=== PATIENT | male | born 1960 | race African-American/Black ===

== ENCOUNTER → 2017-07-07 | Day surgery (SDC) | payer SELFPAY ==
[~2017-07-07] MED LIST: Bupivacaine PF 0.5% 30 ML VIAL ONE; Bupivacaine/Epinephrine 0.25% 30 ML VIAL ONE; Dexamethasone 20 MG/5 ML VIAL ONE; Fentanyl 100 MCG/2 ML VIAL ONE; ISOVUE-370 76%-LOCM 1 ML ONE; Labetalol HCl 100 MG/20 ML VIAL ONE; Lidocaine 1% PF 5 ML VIAL ONE; Midazolam HCl 2 mg/2 ml Vial ONE; Ondansetron HCl/PF 4 MG/2 ML Vial ONE; PHENYLEPHRINE-NS 100 MCG/ML 10 ML SYRINGE ONE; Piperacillin/Tazobactam 4.5 GM in Sodium Chloride 0.9% 100 ML IVPB SCH; Propofol 200 MG/20 ML VIAL ONE
[2017-07-07 15:02] LABS: Hemoglobin 16.4 g/dL (14.0-18.0); Mean Corpuscular HGB CONC 31.7 g/dL (32.0-36.0); Mean Corpuscular Hemoglobin 31.6 pg (27.0-31.0); Mean Corpuscular Volume 99.8 fl (80.0-94.0); Platelet Count 214 thou/uL (130-400); RBC Distribution Width 12.2 % (11.5-14.5)
[2017-07-07 15:05] LABS: ALT (SGPT) 22 U/L (8-55); AST (SGOT) 25 U/L (5-34); Albumin 3.9 g/dL (3.5-5.0); Alkaline Phosphatase 106 U/L (40-150); Anion Gap 11 mmol/L (10-20); BUN (Urea Nitrogen) 7 mg/dL (8.4-25.7); Bilirubin, Total 0.3 mg/dL (0.2-1.2); Calc. Creatinine Clearance 0 mL/min (70-130); Calcium 9.8 mg/dL (7.8-10.44); Carbon Dioxide 26 mmol/L (22-29); Chloride 104 mmol/L (98-107); Estimated GFR-MDRD Greater than 90; Globulin 3.7 g/dL (2.4-3.5); Glucose 101 mg/dL (70-105); Lipase 97 U/L (8-78); Potassium 4.3 mmol/L (3.5-5.1); Protein, Total 7.6 g/dL (6.0-8.3); Sodium 137 mmol/L (136-145)
[2017-07-07 15:17] LABS: #Eosinphils 0.1 thou/uL (0.0-0.7); #Lymphocytes 1.3 thou/uL (1.20-3.40); #Monocytes 0.4 thou/uL (0.11-0.59); #Neutrophils 3.3 thou/uL (1.40-6.50); %Basophils 0.2 % (0.0-1.0); %Eosinophils 1.4 % (0.0-10.0); %Lymphocytes 24.7 % (21.0-51.0); %Monocytes 8.1 % (0.0-10.0); %Neutrophils 65.6 % (42.0-75.0); Lymphocytes 18 % (21-51); MDiff Complete? YES; Monocytes 8 % (0-10); Neutrophil 70 % (42-75); PLT Morphology Comment Appears Adequate; RBC Morphology Normal; Reactive Lymphocytes 4 % (0-10); White Blood Cell (WBC) Count 5.1 thou/uL (4.8-10.8)
[2017-07-07 15:55] LABS: Bilirubin Negative (Negative); Blood, Urine Negative (Negative); Clarity TURBID (Clear); Glucose, Urine (Dipstick) Negative (Negative); Leukocyte Negative (Negative); Nitrite Negative (Negative); Protein, Urine (Dipstick) Negative (Neg-Trace); Specific Gravity, Urine 1.018 (1.002-1.036)
--- NOTE | 2017-07-07 22:24 | CT ---
EXAM: ABDOMEN CT WITH CONTRAST PELVIC CT WITH CONTRAST 07/07/17 HISTORY: Right lower quadrant pain. Hernia to the right lower quadrant since last right. COMPARISON: None. TECHNIQUE: An abdomen and pelvic CT are performed with IV contrast. Enteric contrast was not administered. Coronal reformatted images are submitted for interpretation. FINDINGS: ABDOMEN CT: Lung bases are clear. Heart size is within normal limits. The descending thoracic aorta and abdominal aorta have a normal caliber. No periaortic fat stranding. Symmetric attenuation of psoas muscles. Intra and extrahepatic portal vein is patent. Gallbladder is unremarkable. Subcentimeter hypodensity in the hepatic dome, too small to characterize. There is a small amount of fluid adjacent to the tip of the liver. The liver itself does not have any abnormal enhancement. Spleen, pancreas, and right adrenal gland have appropriate enhancement. Possible fat containing lipom a in the left adrenal gland measuring approximately 1 cm. No gastrohepatic, retrocrural or periportal lymphadenopathy. Symmetric enhancement of the kidneys. No obstructive uropathy. Decreased intra-abdominal fat limits e valuation for inflammatory change. As stated above, there is evidence of fluid adjacent to the liver. Additional significant fluid is not appreciated. No mesenteric mass, lymphadenopathy, or free air. Limited evaluation of the alimentary canal due to lack of oral contrast. gastric mucosa, duodenum and multiple normal caliber small bowel loops are noted. There is a right lower quadrant hernia sac cont aining what appears to be a segment of bowel. There is dilatation of the segment of bowel with hypere khushi and fecalization material. Afferent and efferent loops appear to be within normal limits. Given t hat the cecal apex is appreciated, a segment of small bowel is favored to have herniated through the defect. There is a small eccentric focus of air attenuation which may be in a small outpouching of th e segment of bowel versus a small contained perforation measuring 1 cm. There is concern for small rodney wel strangulation and associated obstruction. There is a moderate amount of fluid adjacent to the her ayesha defect, extending in the right hemiscrotum. The visualized colon is decompressed and unremarkable . The appendix is difficult to appreciate. PELVIC CT: Right lower quadrant hernia as described above. Small left hernia containing mesenteric fat is also n oted. The urinary bladder is unremarkable. No lytic or blastic lesions in the osseous structures. IMPRESSION: 1. Right inguinal hernia containing what appears to be a segment of small bowel through the defe ct. The segment of bowel appears to be incarcerated with associated fecalization and dilatation. A sm all focus of eccentric air is present which may represent air in a diverticulum or small containing p erforation. There is fluid in the right hemiscrotum. 2. Fat containing left inguinal hernia. 3. Possible adenoma of the left adrenal gland, incompletely evaluated. 4. Results of the study discussed with Dr. Shaikh 07/07/17 at 6:49 p.m. Code CR POS: HOMA
--- NOTE | 2017-07-08 00:02 | HP ---
REASON FOR CONSULTATION: Incarcerated right inguinal hernia. HISTORY: Mr. George is a 57-year-old man who reported onset of right groin pain and bulging last nig ht. He states that he had a couple episodes of nausea and vomiting and that the bulge has been prese nt since that time and quite painful. He had a left inguinal hernia in the past, which has been surg ically repaired, but that was not as painful as this one is. He states that he has had 2 normal dante l movements today, but has not passed any gas that he has noticed. He has not had any nausea or vomi ting today and was able to eat lunch. PAST MEDICAL HISTORY: None. PAST SURGICAL HISTORY: Left inguinal hernia repair. OUTPATIENT MEDICATIONS: None. ALLERGIES: No known drug allergies. SOCIAL HISTORY: He smokes about 4 cigarettes a day. FAMILY HISTORY: Noncontributory. REVIEW OF SYSTEMS: Ten-system review of systems is negative except per HPI. He denies fevers, chill s, pain with urination, cough, sore throat, runny nose. LABORATORY DATA AND X-RAY FINDINGS: White count is normal. Electrolytes are unremarkable, lipase is mildly elevated. CT images are reviewed and I agree with a verbal report given to the ER physician. The patient has a large right inguinal hernia containing bowel. There is a focus of gas outside of the lumen of the bowel, but immediately adjacent to it, which could be diverticulum. On my read of the CAT scan, it appears that it is likely his cecum in the hernia, so this could also be gas in the appendix. There is some fluid in the hernia sac, but no other foci of free air and the air seen is n ot anterior to the bowel but medial. PHYSICAL EXAMINATION: GENERAL: Reveals a healthy-appearing man in no acute distress, resting comfortably. HEENT: Unremarkable. He has some soft palpable but not enlarged posterior chain lymph nodes on the right, no other palpable adenopathy, no thyroid nodules. HEART: Regular in its rate and rhythm without murmurs, rubs, or gallops. LUNGS: Clear to auscultation bilaterally. ABDOMEN: Soft and nondistended. He has a firm right inguinal hernia, which is tender to palpation, but easily reduced without difficulty just with gentle pressure, following which his pain in the righ t groin was immediately diminished. No palpable testicular masses. Normal external male genitalia. EXTREMITIES: Warm and well perfused without edema. NEUROLOGIC: No focal deficits. PSYCHIATRIC: Alert, oriented, and appropriate, healed inguinal incision on the left with no palpable recurrent hernia. ASSESSMENT AND PLAN: Right inguinal hernia, unable to be reduced by the ER physician, but fairly eas davian reduced by myself. I believe that the gas outside of the colon is likely gas within the appendix on review of the CT; however, I have recommended going to the operating room tonight for repair of t he hernia if there is any foul odor or purulent fluid within the hernia sac then laparoscopy and poss ible colon resection and ostomy would be recommended. However, I believe that this is unlikely given the fact that the hernia was able to be reduced fairly readily and also given the patient's benign c linical appearance and lab work. If there is no evidence of perforation or infection, then the herni a will be repaired with mesh. If, however, there is any question that it will be repaired primarily if it limits a repair. The inherent risks of surgery were discussed with the patient. These include , but are not limited to bleeding, infection, risks of anesthesia, damage to nearby structures includ ing spermatic cord. The ilioinguinal nerve of testicular artery and vein, hernia recurrence especial ly if mesh is not used, need for laparoscopic versus open colectomy and possible ostomy. He understa nds and accepts these risks and wishes to proceed. Zosyn has been ordered by the ER physician and he has been posted for the operating room.
--- NOTE | 2017-07-15 17:06 | PDOC.OP ---
Operative Note - Operative Note Operative Note: PROCEDURE: Right inguinal hernia repair SURGEON: Barbara Lacey M.D. DATE OF PROCEDURE: 07/07/2017 PREOPERATIVE DIAGNOSIS: Inguinal hernia, indirect POSTOPERATIVE DIAGNOSIS: Inguinal hernia, indirect HISTORY: Mr. George is a 57-year-old man with a one day history of pain and bulging in his right groin. He was found to have an incarcerated inguinal hernia by examination by the ER physician. CT revealed fluid and colon with possible extraluminal air versus diverticulum or appendix within the hernia sac. On my examination in the emergency room the patient had a large hernia which was quite tender but this was able to be successfully reduced at the bedside with moderate difficulty. Given the findings on CT the recommendation was made to proceed to the operating room for urgent repair of the hernia and possible laparotomy and colectomy if there was any evidence of bowel perforation , although this was felt to be clinically unlikely. FINDINGS: Chronic indirect hernia with clear fluid and no odor or evidence of perforation in the hernia sac. Only normal-appearing bowel visible through the base of the hernia. Extensive fibrosis suggesting hernia chronicity. DESCRIPTION OF PROCEDURE: After informed consent was obtained and appropriate preoperative antibiotics were administered, the patient was taken to the operating room, placed in the supine position and general endotracheal anesthesia was administered. The inguinal area was prepped and draped in the standard sterile fashion and local anesthesia was infused to the skin and subcutaneous tissues overlying the inguinal canal. An oblique skin incision was made in the direction of the skin crease. Dissection was carried down to the external oblique aponeurosis which was carefully incised in the direction of its fibers through the enlarged external ring. The aponeurosis was mobilized off the underlying structures. The ilioinguinal nerve was clearly identified running medially to the cord structures and was carefully avoided for the remainder of the case. The inguinal cord was mobilized at the level of the pubic tubercle. The cremasteric muscles were divided and the cord contents and floor of the canal were carefully examined. A large indirect hernia sac was identified. The hernia sac was quite thickened and fibrotic and densely adherent to the cord structures. The hernia sac was very carefully dissected free of the cord contents down to the level of the peritoneal reflection. The hernia sac was opened and was empty except for some clear odorless straw- colored fluid. The bowel palpable through the hernia defect was not thickened or abnormal to palpation and the visible portions appeared pink and normal. The base of the hernia sac was encircled with a pursestring 3-0 Vicryl suture. The pursestring suture was secured and the hernia sac was resected. The base of the hernia sac was tied to the base of the Perfix plug. The Perfix plug was then placed into the internal ring and was tacked down to the internal oblique in a couple of locations. The patch was then secured to the pubic tubercle inferiorly, to the shelving edge of the inguinal ligament laterally, and secured at intervals to the internal oblique medially. A keyhole slit was created and placed around the inguinal cord contents and secured, and the ends secured to each other and to the underlying plug. The operative site was irrigated and hemostasis verified. Local anesthesia was infused into the muscles of the internal oblique medially. The On-Q pump was then tunneled into the wound and placed into the inguinal canal and primed. The external oblique aponeurosis was then closed with 2-0 Vicryl suture, taking care not to pull up any of the underlying cord contents or the On-Q pump tubing into the closure, and the remainder of the local was infused into the subcutaneous tissues circumferentially and to the skin. Marie's fascia was reapproximated with 3-0 Monocryl sutures and the skin was closed with 4-0 subcuticular Monocryl sutures. Dermabond dressings were placed and the On-Q tubing secured with a Steri-Strip and dressed with Dermabond. The patient was extubated and taken to the recovery room in good condition. Estimated blood loss was minimal. There were no complications.
== END ==
LOC: ERS 10:42 → SDC 19:22
PROVIDERS: ATTEND Surgery
PROC: 0YU50JZ Supplement Right Inguinal Region with Synthetic Substitute, Open Approach (ICD-10-PCS; principal; 2017-07-07)
DX: K40.30 Unilateral inguinal hernia, with obstruction, without gangrene, not specified as recurrent (principal); F17.210 Nicotine dependence, cigarettes, uncomplicated; Z98.890 Other specified postprocedural states
CPT/HCPCS: 36415; 74177; 80053; 81003; 83605; 83690; 85025; 96361; 96374; A4306; C1781; J1100; J2001; J2250; J2405; J2543; J2704; J3010; J7050; S0020